=== PATIENT | female | born 1945 | race African-American/Black ===

== ENCOUNTER 2016-03-08 15:47 | Inpatient (IN) | payer OTHER ==
[~2016-03-08] VITALS: Ht 165.1 cm; Wt 128.5 kg
--- NOTE | ~2016-03-08 | H ---
[facility] [place] [place] [address] HISTORY AND PHYSICAL Name: ANGELICA KELLY Room #: 205-P ADM IN M.R.#: [id number] Admission: 03/08/16 Attend Phys: Giorgi Frazier MD Discharge: Date of : 45 Report #: [id number] THIS REPORT FOR: //name// CC: Helena Frazier DATE OF SERVICE: 03/08/2016 CHIEF COMPLAINT: Shortness of breath and chest pain. HISTORY OF PRESENT ILLNESS: The patient is a 70-year-old female with history of hypertension, who presented to the emergency room, complaining of progressively worsening shortness of breath. Symptoms have been ongoing over the last 2 weeks. She has primarily exertional shortness of breath even walking from her room down to her restroom. She has also had exertional chest pain when she walks upstairs. She described this as a pressure type over the retrosternal area, without any radiation. It is resolved with rest. She denies any orthopnea or PND. The patient was seen by the primary doctor recently, who had a chest x-ray, which showed cardiomegaly and subsequently was referred to mine development engineer. She was started on some Lasix. The patient denies any nausea or vomiting. No fever or chills. She has some white sputum. No nausea. PAST MEDICAL HISTORY: Significant for hypertension. No history of any diabetes. No known coronary artery disease. No history of any peptic ulcer disease or bleeding disorder. The patient has a history of hypothyroidism. ALLERGIES: No known drug allergy. HOME MEDICATIONS: Include atenolol, levothyroxine, K-Dur, Lasix, and aspirin. FAMILY HISTORY: Significant for cancer. REVIEW OF SYSTEMS: CONSTITUTIONAL: No recent weight loss or weight gain. No fever or chills. EYES: No change in vision. THROAT: Denies any sore throat. CARDIOVASCULAR: As above. RESPIRATORY: As above. GASTROINTESTINAL: No nausea, vomiting, or abdominal pain. GENITOURINARY: No dysuria or hematuria. NEUROLOGIC: No focal numbness or weakness of the extremities. PSYCHIATRY: No anxiety or depression. The 12-point review of system is negative other than the positive and negative dictated in the history of present illness and the review of systems. [address] [address] HISTORY AND PHYSICAL Name: ANGELICA KELLY Marcia Room #: 205-P [facility] IN ..#: [id number] Admission: 03/08/16 Attend Phys: Giorgi Frazier MD Discharge: Date of : 45 Report #: [id number] PHYSICAL EXAMINATION: VITAL SIGNS: Reviewed. Blood pressure 123/90, heart rate of 54 per minute, afebrile. GENERAL: The patient is awake and alert, not in acute respiratory distress. EYES: Pupils are equal and reactive to light. Nonicteric conjunctivae. THROAT: Appears normal. NECK: Supple. No JVD, no bruit, no lymphadenopathy. CARDIOVASCULAR SYSTEM: S1 and S2. No S3, no murmur. CHEST: Bilateral air entry present. Clear on auscultation. ABDOMEN: Soft. Bowel sounds present. No mass, no organomegaly, no tenderness. PERIPHERY: Trace pedal edema. No calf tenderness. Dorsalis pedis 1+. NEUROLOGICAL: No gross motor or sensory deficit. LABORATORY DATA: Reviewed. White count is 9, hemoglobin and hematocrit are within normal limits, platelet is 195. BUN and creatinine are within normal limit at 15 and 1.0. Potassium 3.9. Glucose was 155. Troponin is 0.43. BNP is 2705. Chest x-ray showed no acute abnormality. Influenza is presently pending. EKG showed sinus rhythm, probable left atrial enlargement, left ventricular hypertrophy, ischemia. ASSESSMENT AND PLAN: 1. Exertional dyspnea and chest pain, worrisome for angina. The patient admitted to telemetry, will be on aspirin and Lovenox, and will be continued on beta stevie and atenolol. We will get an echocardiogram to evaluate LV function. We will also do serial troponins. Steam Setter will be consulted. I will go ahead and obtain a CT of the chest to rule out any pulmonary embolism. 2. Mild hyperglycemia. We check an A1c level. 3. Hypertension. The patient will be continued on atenolol at present. 4. Deep venous thrombosis prophylaxis. She will be on Lovenox for deep venous thrombosis prophylaxis. 5. Hypothyroidism. The patient will be continued on her Synthroid. We will check on her TSH level. Treatment plan has been explained to the patient in detail. <ELECTRONICALLY SIGNED> By: Giorgi Frazier MD 03/09/16 1448 1729 192 Giorgi Frazier MD /nt
--- NOTE | ~2016-03-08 | EKG ---
[place] [address] [facility] [address] [address] ELECTROCARDIOGRAM REPORT Name: ANGELICA KELLY Room #: 205-P ADM IN M.R.#: [id number] Admission: 03/08/16 Attend Phys: Giorgi Frazier MD Discharge: Date of : 45 Report #: [id number] THIS REPORT FOR: //name// [facility] ED Test Date: 2016-03-08 Test Time: 16:01:15 Pat Name: ANGELICA KELLY Department: Room: 205 Gender: F Business Architect: SAUL : 1945 Requested By: Óscar Lockwood Order Number: [id number] MD: Cristopher Olivo Measurements Intervals [place] Rate: 65 P: 65 VT: 181 QRS: -4 QRSD: 100 T: -37 QT: 429 QTc: 447 Interpretive Statements Sinus rhythm Probable left atrial enlargement Left ventricular hypertrophy Abnrm T, probable ischemia, anterolateral and inferior lds No previous ECG available for comparison Electronically Signed On 03-09-2016 7:33:45 PUBLICATION EDITOR by Cristopher Olivo [email or web address] <ELECTRONICALLY SIGNED> By: Cristopher Olivo MD, [facility] 03/09/16 0733 160 00 Cristopher Olivo MD, [facility] /EPI
--- NOTE | ~2016-03-08 | 2DMMODE ---
[facility] [place] [address] 2 D/M-MODE ECHOCARDIOGRAM Name: ANGELICA KELLY Room #: 205-P [facility] IN [facility]#: [id number] Admission: 03/08/16 Attend Phys: Flora Flowers Discharge: Date of : 45 Date of Service: 03/09/16 1249 Report #: [id number] THIS REPORT FOR: //name// Transthoracic Echocardiography Ordering physician: Giorgi Frazier Referring physician: Helena Patiño Vijay Assistant Professor Of Criminal Justice: Laila Gaspar Indications/History: Pulmonary embolism, dyspnea, chest pain. Hx: HTN BP: 111 / HR: 55bpm Height: 65in Weight: 273.4lb 75 Study data: M-mode, complete 2D, complete spectral Doppler, and color Doppler. Location: Echo laboratory. Routine. Image quality was adequate. 2D measurements Normal Normal LVID ED 31.8mm 36-57 IVS ED 11.8mm 6-11 LVID ES 22.5mm 23-40 LVPW ED 12.1mm 6-11 LA volume 18ml/m2 16-28 AoRoot diam 36.3mm 21-37 index ED LVOT diameter 21mm 18-23 Findings: Left ventricle: The cavity size was normal. Wall thickness was increased in a pattern of mild LVH. Systolic function was hyperdynamic. The estimated ejection fraction was in the range of 65% to 70%. Wall motion was normal. Right ventricle: The cavity size was dilated. Systolic function was reduced. Right atrium: The atrium was dilated. Left atrium: The atrium was normal in size. Volume index: 18ml/m2 (S). Aortic valve: Mildly thickened leaflets. Doppler: There was no stenosis. No regurgitation. Peak velocity: [facility] [address] [place] [address] 2 D/M-MODE ECHOCARDIOGRAM Name: ANGELICA KELLY Room #: 205-P [facility] IN M.R.#: [id number] Admission: 03/08/16 Attend Phys: Giorgi MarlowenidFlora schultz Discharge: Date of : 45 Date of Service: 03/09/16 1249 Report #: [id number] 136cm/s (S). Mitral valve: Mildly thickened leaflets . Doppler: There was no evidence for stenosis. No regurgitation. Peak E-wave velocity: 61.3cm/s. Peak A-wave velocity: 82.1cm/s. Tricuspid valve: Structurally normal valve. Doppler: There was no evidence for stenosis. Moderate-severe regurgitation. Regurgitant peak velocity: 369.7cm/s. Peak RV-RA gradient: 55mm Hg (S). Pulmonic valve: Poorly visualized. Pericardium: There was no pericardial effusion. Aorta: Aortic root: The aortic root was normal in size. Pulmonary artery: Systolic pressure was estimated to be 65mm Hg. Diastolic function: Doppler parameters are consistent with abnormal left ventricular relaxation (grade 1 diastolic dysfunction). Systemic veins: Inferior vena cava: The vessel was dilated; the respirophasic diameter changes were in the normal range (= 50%). Conclusions 1. Left ventricle: The cavity size was normal. Wall thickness was increased in a pattern of mild LVH. Systolic function was hyperdynamic. The estimated ejection fraction was in the range of 65% to 70%. 2. Right ventricle: The cavity size was dilated. 3. Right atrium: The atrium was dilated. 4. Aortic valve: Mildly thickened leaflets. 5. Mitral valve: Mildly thickened leaflets . No regurgitation. 6. Tricuspid valve: Moderate-severe regurgitation. 7. Pulmonary arteries: Systolic pressure was estimated to be 65mm Hg. 8. Inferior vena cava: The vessel was dilated; the respirophasic diameter changes were in the normal range (= 50%). <ELECTRONICALLY SIGNED> By: Matt Arguello MD 03/09/16 1344 1249 1344 Matt Arguello MD /gladys
--- NOTE | ~2016-03-08 | HC ---
[facility] [place] [address] CONSULTATION Name: ANGELICA KELLY Room #: 205-P [facility] IN ..#: [id number] Admission: 03/08/16 Attend Phys: Giorgi Frazier MD Discharge: Date of : 45 Report #: [id number] THIS REPORT FOR: //name// CC: Helena Frazier PRIMARY CARE PHYSICIAN: Helena Patiño MD. REFERRAL PHYSICIAN: Giorgi Frazier MD. REASON FOR REFERRAL: Pulmonary embolus. HISTORY OF PRESENT ILLNESS: The patient is a 70-year-old female who presents to Emergency Room with chest pain and dyspnea. Subsequent evaluation revealed bilateral pulmonary embolus. A pulmonary consultation was requested. The patient was in her usual state of health until about 2 weeks ago when she started to develop increasing dyspnea on exertion. A few days ago, she started developing pleuritic chest pain. For that reason, she presented to the Emergency Room. Twenty years ago in 1996, the patient was diagnosed with breast cancer involving the left, she underwent lumpectomy. She did undergo radiation therapy at that time. Normal therapy. She does not know the status of the lymph nodes or the receptor status. She had seen Dr. Olga Kilne in the past along with Dr. Ariza. The patient states that she had a recent mammogram performed by Dr. Patiño. She does not recall the result. The patient also travels extensively. In November, she traveled in an airplane in November. She does not recall any problems during the travels. The patient states that she remains active on a daily basis. Her cousin on the maternal side has been diagnosed with venous thromboembolic disease. Otherwise, she denies any recent febrile illness, night sweats or chills, nausea, vomiting, diarrhea. She denies any recent surgery or trauma. PAST MEDICAL HISTORY: As mentioned above including breast cancer in 1996, left breast undergone lumpectomy, radiation therapy; hypertension. She also has hypothyroidism. PAST SURGICAL HISTORY: As mentioned above. It also includes hysterectomy in [facility] [address] [place] [place] [address] CONSULTATION Name: ANGELICA KELLY Room #: 205-P [facility] IN ..#: [id number] Admission: 03/08/16 Attend Phys: Giorgi Frazier MD Discharge: Date of : 45 Report #: [id number] 1993, bilateral knee surgery. ALLERGIES: None to medications. HOME MEDICATIONS: Atenolol, levothyroxine, potassium supplements, Lasix, aspirin. FAMILY HISTORY: Remarkable for mother . She has end-stage renal disease. Father at the age of 47 due to gastric carcinoma. SOCIAL HISTORY: Born and raised locally. She is . She has 1 child who lives in [facility]. She is a lifetime nonsmoker. Denies any alcohol use. She used to work as a dietitian. REVIEW OF SYSTEMS: As mentioned above, otherwise 10-point system review negative. PHYSICAL EXAMINATION: GENERAL: She is awake, alert, in no apparent distress. VITAL SIGNS: Temperature is 98 degrees Fahrenheit, pulse is 60, respiratory rate is 20, blood pressure 110/75 mmHg, saturation 95% on room air. HEENT: Normocephalic, atraumatic. NECK: Supple, without any lymphadenopathy or thyromegaly. CHEST: Breath sounds are good bilaterally without any rales or wheezes. CARDIOVASCULAR: Normal S1, S2. There are no murmurs or gallop. There is no JVD. There is no carotid bruit. Pulses are 2+/4+ bilaterally. BREASTS: Deferred. ABDOMEN: Soft, nontender, no organomegaly or masses felt. EXTREMITIES: There is no edema, cyanosis or clubbing. LABORATORY DATA: CT chest revealed moderate bilateral pulmonary embolus. No saddle pulmonary embolus is noted. No wedge-shaped defect is noted. Influenza A and B screen is negative. Leg Doppler ultrasound was negative for DVT. TSH was normal. Troponin is 0.66. IMPRESSION: 1. Moderate bilateral pulmonary embolus in this 70-year-old female. She has a history of breast cancer diagnosed 20 years ago. She has had history of extensive travel, though not recently, last travel being in November. No recent surgery or trauma. There is an uncle who has VTE, which is her mother's brother. The patient's pulmonary embolus is felt to be unprovoked though she did have a history of travel months ago. The patient will need workup for occult neoplasm and will need to consider hypocoagulable panel. 2. Elevated troponin, likely related to right ventricular strain, doubt acute [address] [address] CONSULTATION Name: ANGELICA KELLY Room #: 205-P ADM IN M.R.#: [id number] Admission: 03/08/16 Attend Phys: Giorgi Frazier MD Discharge: Date of : 45 Report #: [id number] coronary syndrome. 3. Remote history of breast cancer about 20 years ago. She had an apparent recent mammogram. 4. Essential hypertension. 5. Hypothyroidism. RECOMMENDATION AND DISCUSSION: Agree with anticoagulation. Lovenox or heparin product for now. She apparently had a syncopal episode early this morning. She has been stable hemodynamically. I do not think thrombolytics is necessary at this time. In terms, we will call for possible occult neoplasm. She will need an outpatient workup. She had a mammogram that was performed recently. This will need to be verified. She will need workup for possible occult neoplasm. If workup for neoplasm is negative, then hypocoagulable panel will be recommended. Duration of therapy in this patient is at least 12 months given presumed unprovoked nature. Hypocoagulable panel can be performed at that time. We will await the results of the echocardiogram. In terms of the choice of chronic anticoagulation, the patient was felt to have low risk of bleeding, direct oral anticoagulant such as Pradaxa will be an appropriate agent if it is covered by insurance. Otherwise, Coumadin may be an option. If insurance does cover Xarelto or Eliquis may also be an option, though Pradaxa is the only agent with a reversal antidote should bleeding complications arise. In terms of activity, she should be bed rest today given her recent syncope. We will reassess tomorrow and gradually increase activity as tolerated. Orthostatic will be helpful. She should be assessed closely for possible bleeding complications given anticoagulation. I discussed the findings with the patient in detail, she voiced understanding. Thank you for the consultation. <ELECTRONICALLY SIGNED> By: Ortega Burr MD 03/09/16 1518 1115 1255 Ortega Burr MD /nt
[2016-03-08 15:49] VITALS: BP 98/78
[2016-03-08] MEDS ORDERED: TENORMIN50 MG PO (15:52)
[2016-03-08] MEDS ORDERED: POTASSIUM20 PO (15:53)
[2016-03-08] MEDS ORDERED: LASIX 40 MG TAB40 M2 PO (15:53)
[2016-03-08] MEDS ORDERED: LEVOTHYROXIN0.125 M1 PO (15:53)
[2016-03-08] MEDS ORDERED: CHILDREN'S ASPI81 M1 PO (15:57)
[2016-03-08 16:04] LABS: ABSOLUTE NEUTROPHILS 7.3 thou/uL (1.4-8.2); BASOPHILS 0.4 % (0.0-2.0); EOSINOPHILS 0.2 % (0.0-3.0); HEMATOCRIT 42.2 % (37.0-47.0); HEMOGLOBIN 13.7 gm/dL (12.0-15.0); LYMPHOCYTES 12.5 % (24.0-44.0); MCH 26.6 pg (26.0-34.0); MCHC 32.5 % (28.0-37.0); MCV 81.9 fL (80.0-100.0); MONOCYTES 5.4 % (1.0-8.0); PLATELET COUNT 195 thou/uL (150-400); POLYS 81.5 % (36.0-66.0); RBC 5.16 mil/uL (4.20-5.00); RDW 15.9 % (10.5-14.5)
[2016-03-08 16:05] LABS: MANUAL DIFF NO
[2016-03-08 16:17] LABS: CALCIUM 9.8 mg/dL (8.5-10.1); POTASSIUM 3.9 mmol/L (3.5-5.1)
[2016-03-08 16:24] LABS: TROPONIN-I 0.43 ng/mL (<0.04-0.07)
[2016-03-08 19:35] VITALS: BP 114/79
[2016-03-09 00:06] LABS: GLYCOHEMOGLOBIN (HGB A1C) 5.8 % (4.8-5.6); TSH 0.67 uIU/mL (0.450-4.500)
[2016-03-09 00:08] VITALS: BP 97/64
[2016-03-09 04:00] LABS: ABSOLUTE NEUTROPHILS 5.6 thou/uL (1.4-8.2); BASOPHILS 0.6 % (0.0-2.0); EOSINOPHILS 0.7 % (0.0-3.0); HEMATOCRIT 40.4 % (37.0-47.0); HEMOGLOBIN 13.3 gm/dL (12.0-15.0); LYMPHOCYTES 26.9 % (24.0-44.0); MCH 26.4 pg (26.0-34.0); MCHC 32.9 % (28.0-37.0); MCV 80.2 fL (80.0-100.0); MONOCYTES 10.7 % (1.0-8.0); PLATELET COUNT 182 thou/uL (150-400); POLYS 61.1 % (36.0-66.0); RBC 5.03 mil/uL (4.20-5.00); RDW 15.6 % (10.5-14.5); WBC 9.2 thou/uL (4.0-11.0)
[2016-03-09 04:02] VITALS: BP 99/56
[2016-03-09 04:03] LABS: MANUAL DIFF NO
[2016-03-09 04:11] LABS: CALCIUM 9.4 mg/dL (8.5-10.1); CREATININE 0.9 mg/dL (0.6-1.3); MAGNESIUM 2.1 mg/dL (1.8-2.4); POTASSIUM 3.5 mmol/L (3.5-5.1)
[2016-03-09 04:21] LABS: CHOLESTEROL 202 mg/dL (<200); HDL CHOLESTEROL 80 mg/dL (>40); LDL CHOLESTEROL 109 mg/dL (<100); TC:HDL 2.5 Ratio (Not establshd); TRIGLYCERIDE 68 mg/dL (<150); VLDL 14 mg/dL (<40)
[2016-03-09 04:27] LABS: SERUM ASSESSMENT Clear
[2016-03-09 08:25] VITALS: BP 111/75
[2016-03-09 12:15] VITALS: BP 106/76
[2016-03-09 17:00] VITALS: BP 115/69
[2016-03-09 20:10] VITALS: BP 101/68
[2016-03-10 03:21] LABS: ABSOLUTE NEUTROPHILS 3.3 thou/uL (1.4-8.2); BASOPHILS 0.3 % (0.0-2.0); EOSINOPHILS 2.6 % (0.0-3.0); HEMATOCRIT 39.2 % (37.0-47.0); HEMOGLOBIN 12.7 gm/dL (12.0-15.0); LYMPHOCYTES 44.5 % (24.0-44.0); MCH 26.3 pg (26.0-34.0); MCHC 32.3 % (28.0-37.0); MCV 81.4 fL (80.0-100.0); MONOCYTES 10.3 % (1.0-8.0); PLATELET COUNT 167 thou/uL (150-400); POLYS 42.3 % (36.0-66.0); RBC 4.81 mil/uL (4.20-5.00); RDW 15.8 % (10.5-14.5); WBC 7.9 thou/uL (4.0-11.0)
[2016-03-10 03:38] LABS: MANUAL DIFF NO
[2016-03-10 03:44] LABS: CALCIUM 8.9 mg/dL (8.5-10.1); MAGNESIUM 2.1 mg/dL (1.8-2.4); POTASSIUM 3.3 mmol/L (3.5-5.1)
[2016-03-10 04:30] VITALS: BP 91/58
[2016-03-10 07:55] VITALS: BP 146/74
[2016-03-10 11:40] VITALS: BP 119/59
[2016-03-10 16:00] VITALS: BP 150/85
[2016-03-10 19:49] VITALS: BP 136/77
[2016-03-11 02:36] LABS: HEMATOCRIT 38.2 % (37.0-47.0); HEMOGLOBIN 12.3 gm/dL (12.0-15.0); MCH 26.7 pg (26.0-34.0); MCHC 32.2 % (28.0-37.0); RBC 4.61 mil/uL (4.20-5.00); RDW 15.4 % (10.5-14.5); WBC 8.8 thou/uL (4.0-11.0)
[2016-03-11 02:44] LABS: CALCIUM 8.5 mg/dL (8.5-10.1); CREATININE 0.9 mg/dL (0.6-1.3); POTASSIUM 3.5 mmol/L (3.5-5.1)
[2016-03-11 02:57] LABS: INR 1.1; PROTIME 11.8 Seconds (9.3-11.4)
[2016-03-11 03:04] VITALS: BP 123/80
[2016-03-11 03:17] LABS: APTT > 198.4 Seconds (24.5-32.8)
[2016-03-11 07:46] VITALS: BP 123/80
[2016-03-11 08:10] VITALS: BP 113/70
[2016-03-11 12:15] VITALS: BP 135/77
[2016-03-11 16:40] VITALS: BP 146/75
[2016-03-11 19:36] VITALS: BP 148/76
[2016-03-12 02:57] VITALS: BP 140/79
[2016-03-12 03:51] LABS: HEMOGLOBIN 11.9 gm/dL (12.0-15.0); MCH 26.6 pg (26.0-34.0); MCHC 32.3 % (28.0-37.0); MCV 82.3 fL (80.0-100.0); RBC 4.49 mil/uL (4.20-5.00); RDW 15.8 % (10.5-14.5); WBC 5.6 thou/uL (4.0-11.0)
[2016-03-12 04:05] LABS: CALCIUM 8.5 mg/dL (8.5-10.1); CREATININE 0.8 mg/dL (0.6-1.3); POTASSIUM 3.3 mmol/L (3.5-5.1)
[2016-03-12 07:30] VITALS: BP 124/68
[2016-03-12 11:30] VITALS: BP 119/70
[2016-03-12 14:50] VITALS: BP 148/79
[2016-03-12 19:50] VITALS: BP 149/66
[2016-03-13 04:13] VITALS: BP 129/56
[2016-03-13 08:49] VITALS: BP 154/82
[2016-03-13 11:52] VITALS: BP 158/93
[2016-03-13 17:50] VITALS: BP 148/67
[2016-03-13 20:00] VITALS: BP 126/98
[2016-03-14 03:02] VITALS: BP 153/72
[2016-03-14 07:09] LABS: INR 1.1; PROTIME 10.9 Seconds (9.3-11.4)
[2016-03-14 08:40] VITALS: BP 133/81
[2016-03-14 12:20] VITALS: BP 153/78
[2016-03-14] MEDS ORDERED: COUMADIN 5 MG TA5 M1 PO (13:07)
[2016-03-14] MEDS ORDERED: ENOXAPARIN120 MG/0.1 SUBQ (13:07)
[2016-03-14 14:13] VITALS: BP 153/78
[2016-03-14 14:33] VITALS: BP 153/78
== END 2016-03-14 15:45 | disposition home or self-care (01) | DRG 176 ==
LOC: ER 15:47 → 2N 17:01 → EROBS 17:01 → 2N 17:35
PROVIDERS: Internal Medicine; Internal Medicine Pulmonary Disease; Nurse Practitioner; Radiology Vascular & Interventional Radiology
DX: I26.99 Other pulmonary embolism without acute cor pulmonale (principal); I50.9 Heart failure, unspecified; R73.9 Hyperglycemia, unspecified; I11.0 Hypertensive heart disease with heart failure; E03.9 Hypothyroidism, unspecified; Z84.1 Family history of disorders of kidney and ureter; Z80.0 Family history of malignant neoplasm of digestive organs; Z80.9 Family history of malignant neoplasm, unspecified; Z79.899 Other long term (current) drug therapy; Z85.3 Personal history of malignant neoplasm of breast; Z79.82 Long term (current) use of aspirin; Z79.01 Long term (current) use of anticoagulants
CPT/HCPCS: 10081